=== PATIENT | male | born 1980 | race Caucasian/White ===

== ENCOUNTER 2020-01-09 14:37 | Emergency (ER) | payer OTHER ==
[~2020-01-09] VITALS: Ht 175.3 cm; Wt 85.3 kg
[2020-01-09 14:52] VITALS: BP 145/88; Ht 175.3 cm; Wt 85.3 kg
== END 2020-01-09 16:47 | disposition home or self-care (01) ==
LOC: ED 14:37
DX: S43.101A Unspecified dislocation of right acromioclavicular joint, initial encounter (principal); M25.531 Pain in right wrist; V87.8XXA Person injured in other specified noncollision transport accidents involving motor vehicle (traffic), initial encounter; Y93.I9 Activity, other involving external motion; Y92.413 State road as the place of occurrence of the external cause; Y99.8 Other external cause status